=== PATIENT | male | born 1945 | race Caucasian/White ===

== ENCOUNTER → 2016-08-19 | Outpatient (CLI) | payer MEDICARE ==
--- NOTE | 2016-08-19 17:06 | US ---
EXAMINATION TYPE: US venous doppler duplex LE RT DATE OF EXAM: 08/19/2016 4:56 PM COMPARISON: NONE CLINICAL HISTORY: Rt foot pain R22.31. rt foot and ankle swelling SIDE PERFORMED: Right VESSELS IMAGED: External Iliac Vein (EIV) Common Femoral Vein Deep Femoral Vein Greater Saphenous Vein * Femoral Vein Popliteal Vein Proximal Calf Veins (* superficial vessels) Normal compressibility and spontaneous flow identified. IMPRESSION: No diagnostic evidence of DVT.
== END | disposition home or self-care (01) ==
LOC: RADUSMAIN 16:36
PROVIDERS: ATTEND Orthopaedic Surgery Hand Surgery
DX: R22.31 Localized swelling, mass and lump, right upper limb (principal)

== ENCOUNTER 2016-12-29 20:53 | Observation (INO) | payer MEDICARE ==
[2016-12-29 23:13] VITALS: BMI 25.2
[2016-12-29] MEDS ORDERED: NITROGLYCERIN SL TABS 0.4 MG TAB SUBLINGUAL PRN (23:31)
[2016-12-29] MEDS ORDERED: MELATONIN 3 MG TABLET PO PRN (23:32)
[2016-12-29] MEDS ORDERED: ALBUTEROL NEBULIZED 2.5 MG/3 ML INHALATION PRN (23:32)
[2016-12-29] MEDS ORDERED: IBUPROFEN 800 MG TAB PO PRN (23:32)
[2016-12-30 00:24] LABS: Creatine Kinase 123 U/L (55-170)
[2016-12-30 00:37] LABS: Creatine Kinase MB 1.7 ng/mL (0.0-2.4); Troponin I <0.012 ng/mL (0.000-0.034)
[2016-12-30 06:09] LABS: Creatine Kinase 103 U/L (55-170)
[2016-12-30 06:22] LABS: Creatine Kinase MB 1.2 ng/mL (0.0-2.4); Troponin I <0.012 ng/mL (0.000-0.034)
[2016-12-30] MEDS ORDERED: REGADENOSON 0.4 MG/5 ML SYRINGE IV ONE (08:29)
[2016-12-30] MEDS ORDERED: AMINOPHYLLINE 500 MG/20 ML VIAL IV PRN (08:29)
[2016-12-30] MEDS ORDERED: CHOLECALCIFEROL 1,000 UNIT TAB PO SCH (09:00)
[2016-12-30] MEDS ORDERED: ATORVASTATIN 40 MG TAB PO SCH (09:00)
[2016-12-30] MEDS ORDERED: GABAPENTIN 300 MG CAP PO SCH (09:00)
[2016-12-30] MEDS ORDERED: ASPIRIN 81 MG CHEW PO SCH (09:00)
[2016-12-30] MEDS ORDERED: AMMONIUM LACTATE 12% CREAM 140 GM TUBE TOPICAL SCH (09:00)
--- NOTE | 2016-12-30 09:56 | CONS ---
DATE OF CONSULTATION: Mr. Moran is a 71-year-old male who [facility] [place] as well as by Dr. Danielle regarding his chronic obstructive pulmonary disease, who presented to [facility] with symptoms of chest discomfort. He was working outside and then did not feel well. He got home and felt some discomfort in the chest with tingling in the arm and diaphoresis. The symptoms lasted for about 10 minutes. He went to the emergency room and was given nitroglycerin sublingually that caused hypotension. At time of my evaluation, he is pain free. Patient has no prior history of similar history and his activity level is stable. He has no exertional chest pain, he appears dyspnea on exertion. He has significant chronic obstructive lung disease. He has no PND, orthopnea, or peripheral edema. No dizziness or palpitation. No recent syncope. His coronary risk factors are positive for hyperlipidemia. He stopped smoking in 1999. He is nondiabetic and not hypertensive. His medications at home include: 1. Aspirin. 2. Simvastatin 20 mg daily. 3. Melatonin. 4. Neurontin. 5. Ibuprofen. 6. Vitamin D. 7. Ventolin. REVIEW OF SYSTEMS: RESPIRATORY SYSTEM: He has mild cough, history of obstructive lung disease and has been followed by Dr. Danielle. GI system: No recent GI bleeding. No peptic ulcer disease. system: No dysuria, hematuria. Nervous system: No stroke or seizure. PHYSICAL EXAMINATION: He is a 71-year-old male, alert, oriented, in no apparent distress. Blood pressure 136/70 with a heart in the 80s. HEAD: Normocephalic. EYES: Sclerae anicteric. NECK: Good upstroke. No bruit. No jugular venous distention. LUNGS: With mild decreased in breath sounds. No wheezes. HEART: Regular rate rhythm. S1, S2, no S3, with systolic murmur at the base. No diastolic murmur. No rub. ABDOMEN: Soft, nontender, positive bowel sounds. No organomegaly. EXTREMITIES: No edema. Intact distal pulses. Lab data revealed troponin less than 0.012 for 2 samples, hemoglobin of 14.2. Potassium 3.6. BUN and creatinine of 18 and 0.7. EKG revealed sinus mechanism, normal axis and intervals, cannot exclude inferior wall myocardial infarction. IMPRESSION: 1. Episode of chest discomfort of unclear etiology in a patient with no prior documented history of coronary artery disease. 2. History of chronic obstructive lung disease. 3. History of hyperlipidemia. RECOMMENDATIONS: I would recommend to proceed with a myocardial perfusion imaging as well as an echocardiogram and depending on this testing, further recommendation will be made. I have discussed with the patient the recommendations and he is in full understanding and agreement. Thank you for this consult. We will follow with you.
--- NOTE | 2016-12-30 10:55 | NM ---
EXAMINATION TYPE: NM stress lexiscan cardiolite DATE OF EXAM: 12/30/2016 COMPARISON: NONE HISTORY: TECHNIQUE: After the intravenous administration of 10.7 mCi Tc 99m Sestamibi - Cardiolite resting SP ECT images acquired 45 minutes post injection. The patient received 0.4mg Lexiscan, 28.6 mCi Tc 99m Sestamibi - Stress images obtained [address] injection FINDINGS: Review of stress and rest SPECT images demonstrates no distinct perfusion abnormality. Gated analysi s shows normal wall motion with an estimated left ventricular ejection fraction of 47 %. IMPRESSION: No scintigraphic evidence for reversible ischemia.
[2016-12-30 11:30] VITALS: BP 128/80; PULSE 85; RESP 16; TEMP 98.4
--- NOTE | 2016-12-30 11:38 | ECHOF ---
Referral Reason:chest pain MEASUREMENTS -------- HEIGHT: 170.2 cm WEIGHT: 72.6 kg BP: 117/76 RVIDd: 3.6 cm (< 3.3) IVSd: 1.1 cm (0.6 - 1.1) LVIDd: 4.3 cm (3.9 - 5.3) LVPWd: 1.0 cm (0.6 - 1.1) IVSs: 1.4 cm LVIDs: 3.2 cm LVPWs: 1.2 cm LAESV Index (A-L): 13.80 ml/m Ao Diam: 3.4 cm (2.0 - 3.7) AV Cusp: 1.5 cm (1.5 - 2.6) LA Diam: 3.6 cm (2.7 - 3.8) MV EXCURSION: 15.271 mm (> 18.000) MV EF SLOPE: 66 mm/s (70 - 150) EPSS: 1.5 cm MV E Kian: 0.53 m/s MV DecT: 229 ms MV A Kian: 0.79 m/s MV E/A Ratio: 0.67 RAP: 5.00 mmHg RVSP: 23.99 mmHg FINDINGS -------- Sinus rhythm. This was a technically adequate study. There is mild concentric left ventricular hypertrophy. Overall left ventricular systolic function is low-normal with, an EF between 50 - 55 %. The right ventricle is normal in size. Normal LA size by volume 22+/-6 ml/m2. The right atrial size is normal. There is mild aortic valve sclerosis. There is no evidence of aortic regurgitation. Mild mitral annular calcification present. Mild mitral regurgitation is present. Mild tricuspid regurgitation present. There is no evidence of pulmonary hypertension. The right ventricular systolic pressure, as measured by Doppler, is 23.99mmHg. There is no pulmonic regurgitation present. The aortic root size is normal. There is no pericardial effusion. CONCLUSIONS -------- 1. There is mild concentric left ventricular hypertrophy. 2. Overall left ventricular systolic function is low-normal with, an EF between 50 - 55 %. 3. There is mild aortic valve sclerosis. 4. Mild mitral annular calcification present. 5. Mild mitral regurgitation is present. 6. Mild tricuspid regurgitation present. 7. There is no evidence of pulmonary hypertension. 8. The right ventricular systolic pressure, as measured by Doppler, is 23.99mmHg. HALL DIRECTOR: Jane Lewis RDCS
--- NOTE | 2016-12-30 11:54 | EST ---
DATE OF SERVICE: 12/30/2016 AGE: 71Y SEX: M HT: 67" WT: 160 lbs. Protocol Robbie: Other: Lexiscan Cardiolite Stage: Dur. of Exercise: *Heart Rate Blood Pressure *Rest: 84 Rest: 138/80 * *Max. Achieved: 110 Maximum BP: 135/64 85% PMHR: 128 100% PMHR: 150 *METS: INDICATIONS: Chest pain. MEDICATIONS: Patient was given Lexiscan injection over a period of 15 seconds. Peak heart rate of 110 was achieved. Maximum blood pressure of 135/64 mmHg was noted. Resting EKG shows normal sinus rhythm with normal DC interval and QRS duration and normal ST-T waves. No ST segment depression suggestive of ischemia is noted. The results of the nuclear study will follow.
[2016-12-30 12:21] LABS: Creatine Kinase 113 U/L (55-170)
[2016-12-30 12:34] LABS: Creatine Kinase MB 1.4 ng/mL (0.0-2.4); Troponin I <0.012 ng/mL (0.000-0.034)
--- NOTE | 2016-12-30 19:02 | HP ---
DATE OF ADMISSION: A 71-year-old admitted from [facility] for chest discomfort which has some typical features including chest pain that after working in the yard and while he was sitting and relaxing associated with diaphoresis and it lasted for 15 minutes improved with relaxation and radiating to the bilateral arms. Although patient was ruled out acute coronary artery syndrome and underwent stress test which is negative. The patient is being discharged today. Although patient's chest pain is not related to food, does not appear like gastroesophageal disease. Nonpleuritic in nature. Patient has normal creatinine. Patient takes ibuprofen at home. Normal ejection fraction. All the work-up is negative. Patient is being discharged today. Etiology of chest pain is not clear. Patient does not appear to have musculoskeletal chest pain and patient does not have pneumonia clinically on the imaging that was done in [facility]. REVIEW OF SYSTEMS: CONSTITUTIONAL: No fever, no malaise, no fatigue. HEENT: No recent visual problems or hearing problems. Denied any sore throat. CARDIOVASCULAR: As described in HPI. PULMONARY: No shortness of breath, no cough, no hemoptysis. GASTROINTESTINAL: No diarrhea, no nausea, no vomiting, no abdominal pain. Normoactive bowel sounds. NEUROLOGICAL: No headaches, no weakness, no numbness. HEMATOLOGICAL: Denies any bleeding or petechiae. GENITOURINARY: Denies any burning micturition, frequency, or urgency. MUSCULOSKELETAL/RHEUMATOLOGICAL: Denies any joint pain, swelling, or any muscle pain. ENDOCRINE: Denies any polyuria or polydipsia. The rest of the 14 point review of systems is negative. Home medications include: Albuterol, ammonium lactate, aspirin, cholecalciferol, gabapentin, ibuprofen, melatonin. PAST MEDICAL HISTORY: Significant for COPD. Patient is not smoking anymore. Hyperlipidemia, degenerative bone disease. SOCIAL HISTORY: Former smoker. Quit smoking years ago. Denied any alcohol abuse or any drug abuse. FAMILY HISTORY: Significant for coronary artery disease in the family. Denied any premature coronary disease. PHYSICAL EXAMINATION: Temperature 98.2, pulse of 85, respiratory rate of 16, blood pressure 128/80. Saturating at 93% on room air. GENERAL: The patient is alert and oriented x3, not in any acute distress. Well developed, well nourished. HEENT: Pupils are round and equally reacting to light. EOMI. No scleral icterus. No conjunctival pallor. Normocephalic, atraumatic. No pharyngeal erythema. No thyromegaly. CARDIOVASCULAR: Patient is chest pain free at this point of time. Patient denied any significant shortness of breath at this point of time. PULMONARY: Chest is clear to auscultation, no wheezing or crackles. ABDOMEN: Soft, nontender, nondistended, normoactive bowel sounds. No palpable organomegaly. MUSCULOSKELETAL: No joint swelling or deformity. EXTREMITIES: No cyanosis, clubbing, or pedal edema. NEUROLOGICAL: Gross neurological examination did not reveal any focal deficits. SKIN: No rashes. LABORATORY DATA: As mentioned above. Creatinine are within normal limits. All the workup is negative. Troponins are negative. Stress test is as mentioned above. ASSESSMENT AND PLAN: 1. Episode of chest pain, etiology is unclear at this point of time. Ruled out acute coronary artery syndrome. Suspicion for pulmonary embolism is extremely low. No pneumonia. As the patient's chest pain completely resolved, no further intervention at this point of time. Patient will follow up with his primary care physician in 3 to 7 days. 2. Chronic obstructive pulmonary disease without any acute exacerbation. 3. Chronic low back pain. 4. 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 Patient will be discharged today in stable medical condition to home. Activity as tolerated. Regular diet.
== END 2016-12-30 15:25 | disposition home or self-care (01) ==
LOC: 3OBS 22:39
PROVIDERS: ADMIT Internal Medicine; ATTEND Internal Medicine
DX: R07.89 Other chest pain (principal); J44.9 Chronic obstructive pulmonary disease, unspecified; M54.5 Low back pain; G62.9 Polyneuropathy, unspecified; G89.29 Other chronic pain; Z87.891 Personal history of nicotine dependence; Z82.49 Family history of ischemic heart disease and other diseases of the circulatory system; E78.5 Hyperlipidemia, unspecified; Z79.82 Long term (current) use of aspirin; Z79.899 Other long term (current) drug therapy; R61 Generalized hyperhidrosis; R20.2 Paresthesia of skin; I95.9 Hypotension, unspecified
CPT/HCPCS: 93017; 93306; 82550 ×2; 82553 ×2; 84484 ×2; 78452; G0378 ×2; G0379; A9500; J2785